=== PATIENT | male | born 1980 | race Caucasian/White ===

== ENCOUNTER 2025-03-06 15:25 | Outpatient (CLI) | payer BC, SELFPAY | END 2025-03-06 15:26 | disposition home or self-care (01) | PROVIDERS: PCP Internal Medicine; Visit Provider Internal Medicine | DX: Z13.9 Encounter for screening, unspecified (principal) | CPT/HCPCS: 80053; 80061 ==

== ENCOUNTER 2025-04-09 15:34 | Outpatient (CLI) | payer BC, SELFPAY ==
--- NOTE | 2025-04-09 15:28 | CRLHL7_ITS ---
For Patients: As a result of the Century Cures Act, medical imaging exams and procedure reports are released immediately into your electronic medical record. You may view this report before your referring provider. If you have questions, please contact your health care provider. Indication: Cough Technique: Chest 2 views Comparison: None Findings/Impression: Cardiovascular and mediastinum: Heart size and vasculature are normal in caliber and appearance. Mediastinum is within normal limits. Lungs and pleural spaces: No pleural effusion or pneumothorax. Mild bilateral bronchial wall thickening which can be seen in bronchitis or reactive airways disease. Bones and soft tissues: No significant findings. Dictated by Cristino Gabriel MD @ 04/11/2025 8:00:29 AM (Electronically Signed)
== END 2025-04-09 15:35 | disposition home or self-care (01) ==
LOC: RAD 15:34
PROVIDERS: PCP Internal Medicine; Visit Provider Internal Medicine
DX: R05.9 Cough, unspecified (principal)
CPT/HCPCS: 71046